=== PATIENT | male | born 1950 | race Caucasian/White ===

== ENCOUNTER 2024-05-19 19:02 | Emergency (ER) | payer MEDICARE ==
[~2024-05-19] VITALS: Ht 182.9 cm; Wt 126.0 kg
[2024-05-19] MEDS ORDERED: ROSUVASTATIN CAL5 MG PO (21:34)
[2024-05-19] MEDS ORDERED: COZAAR25 MG PO (21:34)
[2024-05-19] MEDS ORDERED: LOSARTAN POTASS25 MG (21:34)
[2024-05-19] MEDS ORDERED: DIPHTH,PERTUSS(ACELL),TET VAC 0.5 ML SYRINGE IM ONE (21:45)
[2024-05-19 22:14] VITALS: BP 172/95
== END 2024-05-19 22:14 | disposition home or self-care (01) ==
LOC: ED 19:02
DX: S71.112A Laceration without foreign body, left thigh, initial encounter (principal); I10 Essential (primary) hypertension; W26.0XXA Contact with knife, initial encounter
CPT/HCPCS: 90715